=== PATIENT | male | born 1960 | race Hispanic/Latino ===

== ENCOUNTER 2017-09-17 19:59 | Emergency (ER) | payer BC ==
[~2017-09-17] VITALS: Ht 172.7 cm; Wt 81.6 kg
[2017-09-17] MEDS ORDERED: TRIMETHOPRIM/SULFAMETHOXAZOLE 160-800 MG TAB PO ONE (20:30)
[2017-09-17] MEDS ORDERED: TETANUS/DIPHTHERIA TOX ADULT 0.5 ML SYR IM ONE (20:30)
[2017-09-17 21:08] VITALS: BP 138/70
== END 2017-09-17 21:38 | disposition home or self-care (01) ==
LOC: ER 19:59 → FSED 21:38
DX: S61.011A Laceration without foreign body of right thumb without damage to nail, initial encounter (principal); W45.8XXA Other foreign body or object entering through skin, initial encounter; Y92.008 Other place in unspecified non-institutional (private) residence as the place of occurrence of the external cause
CPT/HCPCS: 90471; 90714; 99284